=== PATIENT | female | born 1960 | race Asian ===

== ENCOUNTER → 2024-11-01 07:47 | Outpatient (REF) | payer MEDICARE, SELFPAY | LOC: RAD 07:47 | PROVIDERS: ATTENDING PHYSICIAN Internal Medicine; FAMILY PHYSICIAN Internal Medicine Geriatric Medicine | DX: K29.70 Gastritis, unspecified, without bleeding (principal); K30 Functional dyspepsia | CPT/HCPCS: 76700 ==

== ENCOUNTER → 2024-12-22 18:30 | Outpatient (REF) | payer MEDICARE, SELFPAY | LOC: WDC 18:30 | PROVIDERS: ATTENDING PHYSICIAN Internal Medicine; FAMILY PHYSICIAN Internal Medicine Geriatric Medicine | DX: Z12.31 Encounter for screening mammogram for malignant neoplasm of breast (principal) | CPT/HCPCS: 77063; 77067 ==